=== PATIENT | male | born 1945 | race Caucasian/White ===

== ENCOUNTER 2017-12-27 10:28 | Inpatient (IN) | payer OTHER ==
[~2017-12-27] VITALS: Ht 172.7 cm; Wt 92.5 kg
[2017-12-27] MEDS ORDERED: SODIUM CHLORIDE 0.9% 1000ML 1,000 ML IV STA (10:42)
[2017-12-27] MEDS ORDERED: DIATRIZOATE MEGL/DIATRIZOA SOD 30 ML BTL PO ONE (11:00)
[2017-12-27 11:27] LABS: BASOPHILS # (AUTO) 0.1 (0.0-0.1); BASOPHILS % 0.8 % (0.0-1.0); EOSINOPHILS # (AUTO) 0.1 (0.0-0.4); EOSINOPHILS % 0.8 % (0.0-6.0); HEMATOCRIT 41.2 % (38.2-49.6); HEMOGLOBIN 14.4 g/dL (14.0-18.0); LYMPHOCYTES # (AUTO) 1.1 (1.0-3.2); LYMPHOCYTES % 11.2 % (18.0-39.1); MEAN CORPUSCULAR HEMOGLOBIN 32.7 pg (28-32); MEAN CORPUSCULAR VOLUME 93.6 fL (81-99); MONOCYTES # (AUTO) 0.6 (0.2-0.8); MONOCYTES % 5.6 % (4.4-11.3); NEUTROPHILS # (AUTO) 8.2 (2.1-6.9); PLATELET COUNT 221 x10e3/uL (140-360); RED CELL DISTRIBUTION WIDTH 12.9 % (11.7-14.4)
[2017-12-27 11:29] LABS: BILIRUBIN,URINE NEGATIVE (NEGATIVE); CLARITY,URINE CLEAR (CLEAR); COLOR,URINE YELLOW (YELLOW); KETONES,URINE NEGATIVE (NEGATIVE); LEUKOCYTE ESTERASE ,URINE NEGATIVE (NEGATIVE); NITRITE,URINE NEGATIVE (NEGATIVE); PROTEIN,URINE DIPSTICK NEGATIVE (NEGATIVE); URINE UROBILINOGEN 0.2 mg/dL (0.2 - 1)
[2017-12-27 11:43] LABS: INR 1.11; PROTHROMBIN TIME 13.5 seconds (11.9-14.5)
[2017-12-27 11:44] LABS: PARTIAL THROMBOPLASTIN TIME 29.3 seconds (23.8-35.5)
[2017-12-27 11:52] LABS: ALANINE AMINOTRANSFERASE 16 IU/L (0-55); ALBUMIN 3.6 g/dL (3.5-5.0); ALBUMIN/GLOBULIN RATIO 0.9 (0.8-2.0); ALKALINE PHOSPHATASE 83 IU/L (40-150); ANION GAP 12.8 mmol/L (8-16); BLOOD UREA NITROGEN 10 mg/dL (7-26); BUN/CREATININE RATIO 11 (6-25); CALCIUM 9.6 mg/dL (8.4-10.2); CARBON DIOXIDE 24 mmol/L (22-29); CHLORIDE 104 mmol/L (98-107); CREATINE KINASE 75 IU/L (30-200); CREATININE, SERUM 0.88 mg/dL (0.72-1.25); EST GLOMERULAR FILTRATION RATE > 60 ML/MIN (60-); GLUCOSE 120 mg/dL (74-118); LIPASE 13 U/L (8-78); POTASSIUM 3.8 mmol/L (3.5-5.1); SODIUM 137 mmol/L (136-145)
[2017-12-27 12:23] LABS: PLATELET ESTIMATE ADEQUATE; RBC MORPHOLOGY COMMENT NORMAL
[2017-12-27 12:24] LABS: PLATELET MORPHOLOGY COMMENT NORMAL
--- NOTE | 2017-12-27 14:15 | Diagnostic Imaging Report ---
PROCEDURE:ABDOMEN COMP INCL UPR OR DECUB INDICATION:Small bowel obstruction COMPARISON:CT abdomen and pelvis same day FINDINGS: Nonobstructive bowel gas pattern. Enteric contrast material opacifies the large bowel. Ureters, upper collecting systems, and urinary bladder are also opacified with excreted contrast material. No mass effect or organomegaly. No pneumoperitoneum. Regional skeletal structures are intact with degenerative changes of the lower lumbar spine. Healed fracture anterolateral left seventh rib is partially visualized. CONCLUSION: Nonobstructive bowel gas pattern. Refer to CT abdomen and pelvis earlier 12/27/2017 further details. Dictated by: Eron Brand M.D. on 12/27/2017 at 14:10 Electronically approved by: Eron Brand M.D. on 12/27/2017 at 14:10
--- NOTE | 2017-12-27 15:13 | Diagnostic Imaging Report ---
PROCEDURE: CT ABDOMEN AND PELVIS WITH CONTRAST TECHNIQUE: The abdomen and pelvis were scanned utilizing a multidetector helical scanner from the diaphragm to the lesser trochanter after the IV administration of 100 cc of Isovue 370 and the oral administration of Gastrografin. Coronal and sagittal multiplanar reformations were obtained. COMPARISON: None. INDICATIONS: CONSTIPATION FINDINGS: LOWER THORAX: Trace subsegmental atelectasis in the dependent portions of the lower lobes. Healing fracture anterolateral left seventh rib. HEPATOBILIARY: Multiple hepatic lesions, some of which are uniformly hyperdense and some of which are centrally hypodense with peripheral hyperdensity. Business Office Assistant lesions measure 2.2 cm in segment 2 (series 2 image 23), 2.5 cm in segment 7 (series 2 image 19), 1.6 cm in segment 8, (series 2 image 19), 2 cm in segment 7 seen on series 2 image 21, 2.7 cm in segment 5/6 (series 2 image 32), and 1.5 cm in segment 6 (series 2 image 34). No intrahepatic biliary dilatation. The gallbladder is unremarkable. SPLEEN: No splenomegaly. PANCREAS: No focal masses or ductal dilatation. ADRENALS: No adrenal nodules. KIDNEYS/URETERS: Parenchymal cyst in the interpolar left kidney. Otherwise no focal hepatic lesion. No renal, ureteral, or bladder calculi. No hydronephrosis. PELVIC ORGANS/BLADDER: The urinary bladder, prostate, and seminal vesicles are unremarkable. PERITONEUM / RETROPERITONEUM: No ascites. No pneumoperitoneum. LYMPH NODES: No pelvic sidewall, retroperitoneal, or mesenteric lymphadenopathy. VESSELS: Atherosclerotic calcification of the abdominal aorta and major branch vessels without aneurysmal dilatation. 3 left renal arteries and a single right renal artery. Hepatic arterial anatomy is notable for an accessory left hepatic artery arising from the left gastric artery. Portal vein, splenic vein, and central superior mesenteric vein are patent. GI TRACT: The large bowel shows no evidence of distention or wall thickening. Multiple sigmoid diverticula with a short segment of the mesocolic inflammatory stranding seen on series 2 image 53. No angeline perforation or drainable fluid collection. The appendix is unremarkable. No small bowel dilatation to suggest obstruction. BONES AND SOFT TISSUES: Soft tissues are unremarkable. No osseous destructive lesions. Degenerative disc changes and degenerative facet arthropathy of the lumbar spine. IMPRESSION: Short segment diverticulitis of the proximal sigmoid colon without perforation or drainable fluid collection. Multiple hepatic mass lesions as described. The larger lesions have central hypoattenuation and discontiguous peripheral nodular enhancement most consistent with hemangiomas. The smaller, more uniformly hyperdense lesions likely represent flash filling hemangiomas. Hypervascular metastases are felt to be unlikely in the absence of a known primary malignancy. Definitive characterization with MRI of the abdomen with and without contrast (liver mass protocol) is suggested. Atherosclerotic vascular disease. Healing fracture of the anterolateral left seventh rib. No pneumothorax or pericardial effusion. Dictated by: Eron Brand M.D. on 12/27/2017 at 13:45 Electronically approved by: Eron Brand M.D. on 12/27/2017 at 13:45
[2017-12-27] MEDS ORDERED: ONDANSETRON HCL INJ 2 MG/ML VIAL IV PRN (15:30)
[2017-12-27] MEDS ORDERED: MAGNESIUM HYDROXIDE 30 ML UDC PO PRN (15:30)
[2017-12-27] MEDS ORDERED: LEVOFLOXACIN 500MG/D5W 100ML 100 ML IV SCH (16:00)
[2017-12-27] MEDS: SODIUM CHLORIDE 0.9% 1000ML 1,000 ML IV SCH (17:25)
[2017-12-27] MEDS: POLYETHYLENE GLYCOL 3350 17 GM PACK PO SCH (17:25)
[2017-12-27] MEDS ORDERED: IOPAMIDOL 370 MG/ML 200 ML INFUS..BTL INJ ONE (18:10)
[2017-12-27] MEDS ORDERED: SODIUM CHLORIDE 0.9% 50ML 50 ML ONE (18:10)
[2017-12-27 18:30] VITALS: BP 174/89
[2017-12-27 20:00] VITALS: BP 160/80
[2017-12-27] MEDS: METRONIDAZOLE 500MG/NS 100ML 100 ML IV SCH (21:53)
[2017-12-27 22:00] VITALS: BP_SYST 142; BP_SYST 160; BP_DIAS 69; BP_DIAS 80
[2017-12-27] MEDS ORDERED: ASPIRIN325 MG PO (23:42)
[2017-12-27] MEDS ORDERED: METOPROLOL TART50 MG PO (23:42)
[2017-12-27] MEDS ORDERED: PANTOPRAZOLE SO40 MG PO (23:42)
[2017-12-27] MEDS ORDERED: AMLODIPINE BESYL5 MG PO (23:42)
[2017-12-27] MEDS ORDERED: LOSARTAN POTAS100 MG PO (23:42)
[2017-12-27] MEDS ORDERED: LOVASTATIN40 MG (23:42)
[2017-12-28 00:06] VITALS: BP 142/69
[2017-12-28 04:00] VITALS: BP 147/65
[2017-12-28] MEDS: SODIUM CHLORIDE 0.9% 1000ML 1,000 ML IV SCH (05:02)
[2017-12-28] MEDS: METRONIDAZOLE 500MG/NS 100ML 100 ML IV SCH (05:02)
[2017-12-28 07:00] LABS: ALANINE AMINOTRANSFERASE 14 IU/L (0-55); ALBUMIN/GLOBULIN RATIO 0.9 (0.8-2.0); ALKALINE PHOSPHATASE 68 IU/L (40-150); ANION GAP 12.8 mmol/L (8-16); BLOOD UREA NITROGEN 9 mg/dL (7-26); BUN/CREATININE RATIO 11 (6-25); CALCIUM 8.7 mg/dL (8.4-10.2); CARBON DIOXIDE 22 mmol/L (22-29); CHLORIDE 108 mmol/L (98-107); CREATININE, SERUM 0.79 mg/dL (0.72-1.25); EST GLOMERULAR FILTRATION RATE > 60 ML/MIN (60-); GLUCOSE 105 mg/dL (74-118); POTASSIUM 3.8 mmol/L (3.5-5.1); SODIUM 139 mmol/L (136-145)
[2017-12-28 07:08] LABS: BASOPHILS # (AUTO) 0.1 (0.0-0.1); BASOPHILS % 0.8 % (0.0-1.0); EOSINOPHILS # (AUTO) 0.3 (0.0-0.4); HEMATOCRIT 40.6 % (38.2-49.6); HEMOGLOBIN 13.5 g/dL (14.0-18.0); LYMPHOCYTES # (AUTO) 1.4 (1.0-3.2); LYMPHOCYTES % 21.4 % (18.0-39.1); MEAN CORPUSCULAR HEMOGLOBIN 32.5 pg (28-32); MEAN CORPUSCULAR HGB CONC 33.3 g/dL (31-35); MEAN CORPUSCULAR VOLUME 97.6 fL (81-99); MONOCYTES # (AUTO) 0.7 (0.2-0.8); NEUTROPHILS # (AUTO) 4.1 (2.1-6.9); NEUTROPHILS % 63.3 % (38.7-80.0); PLATELET COUNT 203 x10e3/uL (140-360); RED BLOOD COUNT 4.16 x10e6/uL (4.3-5.7); RED CELL DISTRIBUTION WIDTH 12.7 % (11.7-14.4)
[2017-12-28 07:39] VITALS: BP 159/74
[2017-12-28 08:00] VITALS: BP 159/74
[2017-12-28] MEDS: POLYETHYLENE GLYCOL 3350 17 GM PACK PO SCH (09:00)
[2017-12-28] MEDS ORDERED: LEVAQUIN500 MG PO (11:30)
[2017-12-28] MEDS ORDERED: FLAGYL250 MG PO (11:31)
[2017-12-28] MEDS ORDERED: TYLENOL WITH C1 EACH PO (11:32)
[2017-12-28] MEDS ORDERED: ZOFRAN ODT4 MG PO (11:32)
[2017-12-28] MEDS ORDERED: MIRALAX17 GM PO (11:34)
--- NOTE | 2017-12-28 11:58 | Discharge Summary ---
Please review my history and physical. Instructions for the patient to go see his family doctor in approximately 1 to 2 weeks. Patient has a note in the CT scan of the abdomen and pelvis to present to his PCP. Suggest the patient to see and refer to icebox worker for a colonoscopy in approximately 6 to 8 weeks. Patient has a colonoscopy done approximately 8 years ago, and he is due for one. Patient to resume home medication except for Cipro. He will take Levaquin, Flagyl for 7 days, Zofran as needed, Tylenol No. 3 and MiraLAX as well. Patient is stable to discharge home today. All instructions given. [place] diet. Activity as tolerated. Job#: [id number] DAO
[2017-12-28 12:00] VITALS: BP 188/91
--- NOTE | 2017-12-28 12:07 | History and Physical ---
CHIEF COMPLAINT: Abdominal pain. HISTORY: A 72-year-old male who came in with acute abdominal pain. He took Cipro for 1 day but did not improve and was told that if not better he should go to emergency room for evaluation. In the emergency room, the patient had a CT scan that showed acute sigmoid diverticulitis. More importantly he does have some multiple liver lesions, unspecified. Discussed with the patient at length. The patient is admitted for treatment. PAST MEDICAL HISTORY: Hypertension, dyslipidemia, reflux and prostate cancer. PAST SURGICAL HISTORY: Noncontributory. SOCIAL HISTORY: Patient is an ex-alcohol drinker. Last drink was greater than 20 yeas ago. He does not smoke. ALLERGIES: NO KNOWN DRUG ALLERGIES. HOME MEDICATIONS: List is reviewed including Norvasc, aspirin, losartan, lovastatin, metoprolol, Protonix and Cipro. PHYSICAL EXAMINATION: GENERAL: The patient is in no acute distress. VITAL SIGNS: Temperature is 97. Blood pressure 159/74. Pulse rate 63. Respirations 18. HEENT: Normocephalic, atraumatic and anicteric. NECK: Supple grossly. PULMONARY: Clear. CARDIOVASCULAR: Regular rate and rhythm.. ABDOMEN: Soft with slight tenderness in the left lower quadrant, no rebound or guarding. EXTREMITIES: No cyanosis or edema. NEUROLOGIC: No focal deficit. LABORATORY: Sodium is 139, potassium 3.8, chloride 108, bicarb 22, BUN 9, creatinine 0.8, glucose 105. WBC 6.5. Hemoglobin 13.5. Hematocrit 40.6. Platelets are 203,000. CT scan of abdomen and pelvis showed short segment diverticulitis of the proximal sigmoid colon without perforation or drainable fluid collection. Multiple hepatic mass lesions, larger lesion in the half central hypoattenuation and distant continuous peripheral nodular enhancement most consistent with hemangiomas. The smaller lesion uniformly hyperdense lesion likely represents flash filling hemangiomas. Recommended MRI of the abdomen with liver protocol for further evaluation. IMPRESSION: 1. Noncomplicated sigmoid diverticulitis. 2. Liver lesion, unspecified. PLAN: I gave the patient copy of the CT scan to provide it to his family physician. The patient wanted go home today and does not want to wait for MRI. Levaquin, Flagyl, Zofran, Tylenol No. 3 and MiraLAX for his treatment for diverticulitis. The patient to go home today. Advised patient to resume home medication except for the Cipro since he will be taking the Levaquin. I wrote a note for Dr. Kota Valle, his physician, and also provided the imaging test for the patient to take as well. The patient appreciated it and he is going home today with prescription for Levaquin, Flagyl, Zofran, Tylenol No. 3 and MiraLAX. Prescriptions given to him prior to discharge. Job#: [id number] [employer]
== END 2017-12-28 12:15 | disposition home or self-care (01) | DRG 392 ==
LOC: ER 10:28 → ERHOLD 15:37 → MED/SURG2 18:03
PROVIDERS: ADMIT Internal Medicine; ATTEND Internal Medicine
DX: K57.32 Diverticulitis of large intestine without perforation or abscess without bleeding (principal); I10 Essential (primary) hypertension; Z85.46 Personal history of malignant neoplasm of prostate; E78.5 Hyperlipidemia, unspecified; K76.9 Liver disease, unspecified
CPT/HCPCS: 36415; 74177; 80053; 81001; 82550; 82553; 83690; 84484; 85025; 85610; 85730; 87086; 99284; J1956; J7030; Q9967